=== PATIENT | female | born 2000 | race Caucasian/White ===

== ENCOUNTER 2019-09-18 14:53 | Emergency (ER) | payer OTHER ==
[2019-09-18 15:16] VITALS: BP 109/75
--- NOTE | 2019-09-18 15:48 | UC ---
Upper Extremity HPI - HPI Summary HPI Summary: Pt presents with c/o left wrist and elbow pain, swelling and bruising after falling out of bed this morning with left arm stretched out. - History of Current Complaint Chief Complaint: UCUpperExtremity Stated Complaint: SP FALL-LT ARM INJURY Time Seen by Provider: 09/18/19 15:23 Hx Obtained From: Patient Hx Last Menstrual Period: This week ?: No Onset/Duration: Sudden Onset, Lasting Hours, Still Present Severity Initially: Moderate Severity Currently: Moderate Pain Intensity: 7 Location Of Pain: Is Discrete @ - left wrist and elbow Character: Dull, Aching, Stiffness Aggravating Factor(s): Movement Alleviating Factor(s): Rest Associated Signs And Symptoms: Positive: Swelling, Bruising Related History: Dominant Hand Right - Risk Factors Non-Orthopedic Risk Factor: Negative DVT Risk Factors: Negative Septic Arthritis Risk Factor: Negative Compartment Syndrome Risk Factors: Pain - Allergies/Home Medications Allergies/Adverse Reactions: Allergies Allergy/AdvReac Type Severity Reaction Status Date / Time Sulfa (Sulfonamide Allergy Swelling Verified 09/18/19 15:16 Antibiotics) Of Face,Lips,& Throat Home Medications: Home Medications NK [No Home Medications Reported] 09/18/19 [History Confirmed 09/18/19] PMH/Surg Hx/FS Hx/Imm Hx Previously Healthy: Yes - Surgical History Surgical History: None - Family History Known Family History: Positive: Cardiac Disease - Social History Occupation: Student Lives: Dormitory/Roommates Alcohol Use: None Substance Use Type: None Smoking Status (MU): Never Smoked Tobacco Have You Smoked in the Last Year: No - Immunization History Vaccination Up to Date: Yes Review of Systems All Other Systems Reviewed And Are Negative: Yes Constitutional: Positive: Negative Skin: Positive: Bruising - left wrist Eyes: Positive: Negative ENT: Positive: Negative Respiratory: Positive: Negative Cardiovascular: Positive: Negative Gastrointestinal: Positive: Negative Genitourinary: Positive: Negative Motor: Positive: Decreased ROM - left wrist and elbow Neurovascular: Positive: Negative Musculoskeletal: Positive: Arthralgia, Decreased ROM, Edema, Myalgia Neurological: Positive: Negative Psychological: Positive: Negative Is Patient Immunocompromised?: No Physical Exam Triage Information Reviewed: Yes Appearance: Pain Distress - with left arm movement Vital Signs: Initial Vital Signs Temp 99.2 F 09/18/19 15:10 Pulse 93 09/18/19 15:10 Resp 16 09/18/19 15:10 BP 109/75 09/18/19 15:10 Pulse Ox 100 09/18/19 15:10 Vital Signs Reviewed: Yes Eye Exam: Normal ENT: Positive: Hearing grossly normal Dental Exam: Normal Neck exam: Normal Respiratory: Positive: No respiratory distress Musculoskeletal: Positive: Strength Limited @ - left wrist and elbow, ROM Limited @ - left wrist and elbow, Edema @ - left wrist Neurological Exam: Normal Psychological Exam: Normal Skin Exam: Other - brusiing. left wrist Diagnostics - Radiology No standard instances Radiology Interpretation Completed By: Radiologist - Deputy Director Of Public Works: David Arnold Daniel, ([id number]) Lighting Engineer: RANJITH, ([id number]) Report Date: 09/18/2019 15:27:00 Report Status: Final Start of Report Content ====== Patient Name: EVERT SHANNON Medical Record#: [id number] Ordering Physician: Raven Stuart LOAD MANAGER Acct.#: [id number] : 2000 Age: 19 Sex: F Location: [facility] Exam Date: 09/18/19 1527 ADM Status: REG ER Order Information: WRIST LEFT 3+ VWS Accession Number: [id number] CPT: 94316 HISTORY: fell out of bed onto wrist . COMPARISONS: None relevant available at the time of dictation. VIEWS: 3, Frontal, lateral, and oblique views of the left wrist FINDINGS: BONE DENSITY: Normal. BONES: There is no displaced fracture. JOINTS: There is no arthropathy. ALIGNMENT: There is no dislocation. SOFT TISSUES: Unremarkable. OTHER FINDINGS: None. IMPRESSION: NO ACUTE OSSEOUS INJURY. IF SYMPTOMS PERSIST, RECOMMEND REPEAT IMAGING. <Electronically signed by David Arnold MD in OV> 09/18/191604 Dictated By: David Arnold MD Dictated Date/Time: 09/18/191603 Transcribed Date/Time: 09/18/191603 Copy to: CC:Raven Stuart LOAD MANAGER; No Primary Care Phys,NOPCP ; Jose Reed MD Imaging - [facility] Imaging [facility] [address] [address] ph [phone]) ph [phone] ph ) End of Report Content Deputy Director Of Public Works: David Arnold Daniel, ([id number]) Lighting Engineer: RANJITH (AMBERANCE) Report Date: 09/18/2019 15:27:00 Report Status: Final Start of Report Content Patient Name: EVERT SHANNON Medical Record#: [id number] Ordering Physician: Raven Stuart NP Acct.#: [id number] : 1999 Age: 19 Sex: F Location: [facility] Exam Date: 09/18/19 152 ADM Status: REG ER Order Information: WRIST LEFT 3+ VWS Accession Number: [id number] CPT: 82862 HISTORY: fell out of bed onto wrist . COMPARISONS: None relevant available at the time of dictation. VIEWS: 3, Frontal, lateral, and oblique views of the left wrist FINDINGS: BONE DENSITY: Normal. BONES: There is no displaced fracture. JOINTS: There is no arthropathy. ALIGNMENT: There is no dislocation. SOFT TISSUES: Unremarkable. OTHER FINDINGS: None. IMPRESSION: NO ACUTE OSSEOUS INJURY. IF SYMPTOMS PERSIST, RECOMMEND REPEAT IMAGING. <Electronically signed by David Arnold MD in OV> 09/18/191604 Dictated By: David Arnold MD Dictated Date/Time: 09/18/191603 Transcribed Date/Time: 09/18/191603 Copy to: CC:Raven Stuart LOAD MANAGER; No Primary Care Phys,NOPCP ; Jose Reed MD Imaging - [facility] Imaging - [place] [facility] - [facility] [address] [address] ph [phone] ph ([phone]) ph ([phone]) End of Report Content Upper Extremity Course/Dx - Differential Dx/Diagnosis Differential Diagnosis/HQI/PQRI: Contusion, Fracture (Closed) Provider Diagnosis: Left wrist injury, Left elbow pain Discharge ED - Sign-Out/Discharge Documenting (check all that apply): Patient Departure All imaging exams completed and their final reports reviewed: Yes - Discharge Plan Condition: Stable Disposition: HOME Patient Education Materials: Wrist Injury (ED), Elbow Sprain (ED) Referrals: No Primary Care Phys,NOPCP [Primary Care Provider] - [facility] PHYSICIAN REFERRAL [Outside] Colby Rodríguez MD [Medical Doctor] - - Billing Disposition and Condition Condition: STABLE Disposition: Home
== END 2019-09-18 16:55 | disposition home or self-care (01) ==
LOC: UCCORT 14:53
DX: S60.212A Contusion of left wrist, initial encounter (principal); M25.522 Pain in left elbow; Z88.2 Allergy status to sulfonamides; W06.XXXA Fall from bed, initial encounter; Y92.9 Unspecified place or not applicable
CPT/HCPCS: 99201; G0463